=== PATIENT | female | born 1970 | race Caucasian/White ===

== ENCOUNTER 2022-03-29 07:48 | Outpatient (CLI) | payer OTHER | END 2022-03-29 07:49 | disposition home or self-care (01) | LOC: CSHMAMMO 07:48 | PROVIDERS: ATTEND Obstetrics & Gynecology | DX: Z12.31 Encounter for screening mammogram for malignant neoplasm of breast (principal); Z80.3 Family history of malignant neoplasm of breast | CPT/HCPCS: 77063; 77067 ==

== ENCOUNTER 2024-05-04 08:59 | Outpatient (CLI) | payer OTHER | END 2024-05-04 09:00 | disposition home or self-care (01) | LOC: CSHMAMMO 08:59 | PROVIDERS: ATTEND Obstetrics & Gynecology | DX: Z12.31 Encounter for screening mammogram for malignant neoplasm of breast (principal); Z80.3 Family history of malignant neoplasm of breast | CPT/HCPCS: 77067 ==